=== PATIENT | female | born 1960 | race Hispanic/Latino ===

== ENCOUNTER 2023-04-11 02:01 | Emergency (ER) | payer OTHER ==
--- OUTSIDE RECORDS SUMMARY | 2023-04-11 02:05 | XMS REPORT | Continuity of Care Document ---
:1960 Author Organization [facility] t Address [address] [place] [address] [place] [id number] Care Team Providers Name Role Phone Victor Manuel Almeida MD Primary Care Physician MAGED SAWANT Attending Clinician Unavailable RITCHIE SAVAGE Attending Clinician Unavailable GEORGIE BRANCH Attending Clinician Unavailable MIMA DURAN Attending Clinician Unavailable MARIO ROBERT Attending Clinician Unavailable Lisa Olivier Attending Clinician LISA OLIVIER Attending Clinician Unavailable Claire Attending Clinician Unavailable DR BK JOHNSON Attending Clinician Unavailable JERRY BAKER Attending Clinician Unavailable MAGY FOY Attending Clinician Unavailable LORENZO CARDOZO Attending Clinician Unavailable ANTON TREJO Attending Clinician Unavailable YARON FORD Attending Clinician Unavailable JESSICA RIOS Attending Clinician Unavailable RITCHIE SAVAGE Admitting Clinician Unavailable Claire Admitting Clinician Unavailable DR BK JOHNSON Admitting Clinician Unavailable YARON FORD Admitting Clinician Unavailable JESSICA RIOS Admitting Clinician Unavailable Payers Payer Name Policy Type Policy Number Effective Date Expiration Date S ource Problems This patient has no known problems. Allergies, Adverse Reactions, Alerts Allergy Allergy Status Severity Reaction(s) Onset Inactive Treating Comm ents Source Name Type Date Date Clinician NO KNOWN Allergy Active [facility] Social History Social Habit Start Date Stop Date Quantity Comments Source Exposure to Not sure JOB Carrera [facility]-2 [facility] (event) Tobacco use and 2021-03-29 2021-03-29 Never used JOB Baker exposure 00:00:00 00:00:00 [facility] Alcohol intake 2021-03-29 2021-03-29 Current drinker JOB Acosta 00:00:00 00:00:00 of alcohol [facility] (finding) Sex Assigned At [birth year] JOB Baker 00:00:00 [facility]:00:00 [facility] Smoking Status Start Date Stop Date Source Never smoker [facility] Medications Ordered Filled Start Stop Current Ordering Indication Dosage Frequency Signature Comments Components Source Medication Medication Date Date Medication? Clinician (SIG) Name Name HYDROcodone Yes 1{tbl} Take [address] -acetaminop 9-20 tablet by Jeannine es hen (NORCO 13:40: mouth Medica l 10-325) 35 every 6 Center 10-325 mg (six) per tablet hours as needed for Pain. HYDROcodone Yes 1{tbl} Take [address] -acetaminop 9-20 tablet by Jeannine es hen (NORCO 13:40: mouth Medica l 10-325) 35 every 6 Center 10-325 mg (six) per tablet hours as needed for Pain. HYDROcodone Yes 1{tbl} Take [address] -acetaminop 9-20 tablet by Jeannine es hen (NORCO 13:40: mouth Medica l 10-325) 35 every 6 Center 10-325 mg (six) per tablet hours as needed for Pain. HYDROcodone Yes 1{tbl} Take [address] -acetaminop 9-20 tablet by Jeannine es hen (NORCO 13:40: mouth Medica l 10-325) 35 every 6 Center 10-325 mg (six) per tablet hours as needed for Pain. sodium 2020- No Post-trauma 2mL Q7D Inject 2 [facility] hyaluronate 03-29 tic mLs Karla viscosueh, 00:00: 00:00 osteoarthri intra-fabio Medical (ORTHOVISC) 00 :00 tis of left cularly Center 30 mg/2 mL knee once a Syrg week for 3 doses. Edarbyclor 2020-[address] 40-25 mg 9-16 [facility] Tab 00:00: Medical 00 Marana Edarbyclor 2020-[address] 40-25 mg 9-16 [facility] 00:00: Medical 00 Marana Edarbyclor 2020-[address] 40-25 mg 9-16 [facility] 00:00: Medical 00 Marana Edarbyclor 2020-[address] 40-25 mg 9-16 [facility] 00:00: Medical 00 Marana ALPRAZolam 0 Yes .25mg Take 0.[address] (XANAX) 9-15 mg by [facility] 0.25 MG 00:00: mouth Medical tablet 00 every 12 Center (twelve) hours as needed for anxiety. amitriptyli 0 Yes 50mg QD Take [address] ne (ELAVIL) 9-15 by mouth Luke s 25 MG 00:00: nightly. Medical tablet 00 Marana metoprolol 0 Yes 200mg QD Take [address] succinate 9-15 mg by [facility] (TOPROL-XL) 00:00: mouth Medic al 200 MG 24 00 daily. Center hr tablet naproxen 2020-0 Yes 500mg Q.5D Take [address] (NAPROSYN) 9-15 mg by [facility] 500 MG 00:00: mouth 2 Medical tablet 00 (two) Center times daily. ALPRAZolam 0 Yes .25mg Take 0.[address] (XANAX) 9-15 mg by [facility] 0.25 MG 00:00: mouth Medical tablet 00 every 12 Center (twelve) hours as needed for anxiety. amitriptyli 2020-0 Yes 50mg QD Take [address] [facility] (ELAVIL) 9-15 by mouth Luke s 25 MG 00:00: nightly. Medical tablet 00 Center metoprolol 2020-0 Yes 200mg QD Take [address] succinate 9-15 mg by [facility] (TOPROL-XL) 00:00: mouth Medic al 200 MG 24 00 daily. Center hr tablet naproxen 2020-0 Yes 500mg Q.5D Take [address] (NAPROSYN) 9-15 mg by [facility] 500 MG 00:00: mouth 2 Medical tablet 00 (two) Center times daily. ALPRAZolam 2020-0 Yes .25mg Take 0.[address] (XANAX) 9-15 mg by [facility] 0.25 MG 00:00: mouth Medical tablet 00 every 12 Center (twelve) hours as needed for anxiety. amitriptyli 2020-0 Yes 50mg QD Take [address] [facility] (ELAVIL) 9-15 by mouth Luke s 25 MG 00:00: nightly. Medical tablet 00 Marana metoprolol 2020-0 Yes 200mg QD Take [address] succinate 9-15 mg by [facility] (TOPROL-XL) 00:00: mouth Medic al 200 MG 24 00 daily. Center hr tablet naproxen 2020-0 Yes 500mg Q.5D Take [address] (NAPROSYN) 9-15 mg by [facility] 500 MG 00:00: mouth 2 Medical tablet 00 (two) Center times daily. ALPRAZolam 2020-0 Yes .25mg Take 0.[address] (XANAX) 9-15 mg by [facility] 0.25 MG 00:00: mouth Medical tablet 00 every 12 Center (twelve) hours as needed for anxiety. amitriptyli 2020-0 Yes 50mg QD Take [address] [facility] (ELAVIL) 9-15 by mouth Luke s 25 MG 00:00: nightly. Medical tablet 00 Marana metoprolol 2020-0 Yes 200mg QD Take [address] succinate 9-15 mg by [facility] (TOPROL-XL) 00:00: mouth Medic al 200 MG 24 00 daily. Center hr tablet naproxen 2020-0 Yes 500mg Q.5D Take [address] (NAPROSYN) 9-15 mg by [facility] 500 MG 00:00: mouth 2 Medical tablet 00 (two) Center times daily. montelukast 2020-0 Yes 10mg QD Take [address] (SINGULAIR) 7-01 by mouth Luke s 10 mg 00:00: daily. Medical tablet 00 Marana montelukast 2020-0 Yes 10mg QD Take [address] (SINGULAIR) 7-01 by mouth Luke s 10 mg 00:00: daily. Medical tablet 00 Marana montelukast 2021-0 Yes 10mg QD Take [address] (SINGULAIR) 7-01 by mouth Luke s 10 mg 00:00: daily. Medical tablet [address] [place] [address] montelukast Yes 10mg QD Take [address] (SINGULAIR) 7-01 by mouth Luke s 10 mg 00:00: daily. Medical tablet Center Vital Signs Vital Name Observation Time Observation Value Comments Source Systolic blood 2021-03-29 13:40:00 136 mm[Hg] [facility] Diastolic blood 2021-03-29 13:40:00 87 mm[Hg] [facility] S t [facility] Heart rate 2021-03-29 13:40:00 106 /min [facility] Body temperature 2021-03-29 13:40:00 36.72 [facility] Body height 2021-03-29 13:40:00 162.6 cm [facility] Body weight 2021-03-29 13:40:00 73.483 kg [facility] BMI 2021-03-29 13:40:00 27.81 kg/m2 [facility] Procedures This patient has no known procedures. Plan of Care Planned Activity Planned Date Details Comments Source Future Scheduled 2023-03-10 Influenza Vaccine (#1) [facility] 00:00:00 [code = Influenza Vaccine [facility] (#1)] Future Scheduled 2022-07-[address] [facility] 00:00:00 (12+) [code = DEPRESSION [facility] Center SCREENING (12+)] Future Scheduled 2022-03-[address] [facility] 00:00:00 Counseling and Screening [facility] (12+) [code = Tobacco Cessation Counseling and Screening (12+)] Future Scheduled 2022-03-[address] [facility] 00:00:00 Counseling and Screening [facility] (12+) [code = Tobacco Cessation Counseling and Screening (12+)] Future Scheduled 2022-03-[address] [facility] 00:00:00 Counseling and Screening [facility] (12+) [code = Tobacco Cessation Counseling and Screening (12+)] Future Scheduled 2022-03-10 INFLUENZA VACCINE (#1) [facility] 00:00:00 [code = INFLUENZA VACCINE Me dical Center (#1)] Future Scheduled 2022-03-10 INFLUENZA VACCINE (#1) [facility] 00:00:00 [code = INFLUENZA VACCINE Me dical Center (#1)] Future Scheduled 2021-07-[address] [facility] 00:00:00 (12+) [code = DEPRESSION Med ical Center SCREENING (12+)] Future Scheduled 2021-07-[address] [facility] 00:00:00 (12+) [code = DEPRESSION Med ical Center SCREENING (12+)] Future Scheduled 2021-03-10 INFLUENZA VACCINE (#1) [facility] 00:00:00 [code = INFLUENZA VACCINE Me dical Center (#1)] Future Scheduled 2020-07-[address] [facility] 00:00:00 (12+) [code = DEPRESSION Med ical Center SCREENING (12+)] Future Scheduled 2011 SHINGLES VACCINES ([address] [facility] 00:00:00 2) [code = SHINGLES [facility] VACCINES (1 of 2)] Future Scheduled 2011 SHINGLES VACCINES ([address] [facility] 00:00:00 2) [code = SHINGLES [facility] Center VACCINES (1 of 2)] Future Scheduled 2011 SHINGLES VACCINES ([address] [facility] 00:00[facility]00 [facility] Future Scheduled 2011 SHINGLES VACCINES ([address] [facility] 00:00:00 2) [code = SHINGLES [facility] VACCINES (1 of 2)] Future Scheduled 2006 Lipid panel (procedure) [facility] 00:00:00 [code = 02442479] Medical Ce nter Future Scheduled 2006 Lipid panel (procedure) [facility] 00:00:00 [code = 81089041] Medical Ce nter Future Scheduled 2006 Lipid panel (procedure) [facility] 00:00:00 [code = 66130041] Medical Ce nter Future Scheduled 2006 Lipid panel (procedure) [facility] 00:00:00 [code = 01489549] Medical Ce nter Future Scheduled 1982 Screening for malignant [facility] 00:00:00 neoplasm of cervix Medical C enter (procedure) [code = 892799275] Future Scheduled 1982 Screening for malignant [facility] 00:00:00 neoplasm of cervix Medical C enter (procedure) [code = 739329035] Future Scheduled 1982 Screening for malignant [facility] 00:00:00 neoplasm of cervix Medical C enter (procedure) [code = 268801771] Future Scheduled 1982 Screening for malignant [facility] 00:00:00 neoplasm of cervix Medical C enter (procedure) [code = 385120245] Future Scheduled 1980 DTAP/TDAP/TD VACCINES ([address] [facility] 00:00:00 - Tdap) [code = Medical Cent er DTAP/TDAP/TD VACCINES (1 - Tdap)] Future Scheduled 1980 DTAP/TDAP/TD VACCINES ([address] [facility] 00:00:00 - Tdap) [code = Medical Cent er DTAP/TDAP/TD VACCINES (1 - Tdap)] Future Scheduled 1980 DTAP/TDAP/TD VACCINES ([address] [facility] 00:00:00 - Tdap) [code = Medical Cent er DTAP/TDAP/TD VACCINES (1 - Tdap)] Future Scheduled 1980 DTAP/TDAP/TD VACCINES ([address] [facility] 00:00:00 - Tdap) [code = Medical Cent er DTAP/TDAP/TD VACCINES (1 - Tdap)] Future Scheduled 1979 HEPATITIS C SCRE[facility]ING [facility] 00:00:00 [code = HEPATITIS C Medical Center SCREENING] Future Scheduled 1979 HEPATITIS C [facility]ING [facility] 00:00:00 [code = HEPATITIS C Medical Center SCREENING] Future Scheduled 1979 HEPATITIS C [facility] 00:00:00 [code = HEPATITIS C Medical Center SCREENING] Future Scheduled 1979 HEPATITIS C [facility] 00:00:00 [code = HEPATITIS C Medical Center SCREENING] Future Scheduled [address] Human [address] [facility] 00:00:00 virus screening Medical Cent er (procedure) [code = 603052536] Future Scheduled 1973 COVID-19 VACCINE (1) [facility] 00:00:00 [code = COVID-19 VACCINE Med ical Center (1)] Future Scheduled 1961 COVID-19 VACCINE (#1[facility] 00:00:00 [code = COVID-19 VACCINE Med ical Center (#1)] Future Scheduled 1961 COVID-19 VACCINE (#1[facility] 00:00:00 [code = COVID-19 VACCINE Med ical Center (#1)] Future Scheduled 1961 COVID-19 VACCINE (#1[facility] 00:00:00 [code = COVID-19 VACCINE Med ical Center (#1)] Future Scheduled 1961 Screening for malignant [facility] 00:00:00 neoplasm of colon Medical Ce nter (procedure) [code = 198491312] Future Scheduled 1961 Screening for malignant [facility] 00:00:00 neoplasm of colon Medical Ce nter (procedure) [code = 089685633] Future Scheduled 1961 Screening for malignant [facility] 00:00:00 neoplasm of colon Medical Ce nter (procedure) [code = 064880286] Future Scheduled 1961 Sigmoidoscopy [code = [facility] 00:[facility]:00 Sigmoidoscopy] Medical Cente r Future Scheduled 1961 Screening for malignant [facility] 00:00:00 neoplasm of colon Medical Ce nter (procedure) [code = 514435608] Future Scheduled 1961 Screening for malignant [facility] 00:00:00 neoplasm of colon Medical Ce nter (procedure) [code = 058575340] Future Scheduled 1961 Sigmoidoscopy [code = [facility] 00:00:00 Sigmoidoscopy] Medical Cente r Future Scheduled 1961 Screening for malignant [facility] 00:00:00 neoplasm of breast Medical C enter (procedure) [code = 271442729] Future Scheduled 1961 CT Colonography (combo) [facility] 00:00:00 [code = CT Colonography [facility] (combo)] Future Scheduled 1961 Screening for malignant [facility] 00:00:00 neoplasm of colon Medical Ce nter (procedure) [code = 253913086] Future Scheduled 1961 Screening for malignant [facility] 00:00:00 neoplasm of colon Medical Ce nter (procedure) [code = 861053048] Future Scheduled 1961 Screening for malignant [facility] 00:00:00 neoplasm of breast Medical C enter (procedure) [code = 574585403] Future Scheduled 1961 Screening for malignant [facility] 00:00:00 neoplasm of colon Medical Ce nter (procedure) [code = 801915819] Future Scheduled 1961 Screening for malignant [facility] 00:00:00 neoplasm of breast Medical C enter (procedure) [code = 835013953] Future Scheduled 1961 CT Colonography (combo) [facility] 00:00:00 [code = CT Colonography [facility] (combo)] Future Scheduled 1961 Screening for malignant [facility] 00:00:00 neoplasm of colon Medical Ce nter (procedure) [code = 130334138] Future Scheduled 1961 Screening for malignant [facility] 00:00:00 neoplasm of colon Medical Ce nter (procedure) [code = 002129013] Future Scheduled 1961 Screening for malignant [facility] 00:00:00 neoplasm of colon Medical Ce nter (procedure) [code = 272305199] Future Scheduled 1961 Screening for malignant [facility] 00:00:00 neoplasm of colon Medical Ce nter (procedure) [code = 769120988] Future Scheduled 1960 Sigmoidoscopy [code = [facility] 00:00:00 Sigmoidoscopy] Medical Cente r Future Scheduled 1961 Screening for malignant [facility] 00:00:00 neoplasm of breast Medical C enter (procedure) [code = 412235934] Future Scheduled 1961 CT Colonography (combo) [facility] 00:00:00 [code = CT Colonography [facility] (combo)] Future Scheduled 1961 Screening for malignant [facility] 00:00:00 neoplasm of colon Medical Ce nter (procedure) [code = 903451663] Encounters Start End Encounter Admission Attending Care Care Encounter Source Date/Time Date/Time Type Type Clinicians Facility Department ID 2022-04-26 Inpatient MAGED MARIA [facility] [id number] [place] 05:42:19 0541 [facility] 2022-06-28 2022-06-29 Inpatient JANETTE [facility] [id number] [facility] 13:49:00 17:00:00 RITCHIE 2022-06-28 2022-06-28 Emergency ER JOSE CARLOS, [facility] [id number] [place] 09:41:00 13:11:00 GEORGIE -[id number] [facility] 2022-04-25 2022-04-25 Emergency ER ROGER, [facility] [id number] [place] 14:49:00 17:35:00 MIMA -[id number] [facility] 2021-04-07 2021-04-07 Outpatient CJ ROBERT [facility] [id number] [place] 10:26:00 10:26:00 [id number] 2021-03-29 2021-03-29 Office Soy, [facility] [id number] 13:19:33 14:38:54 Visit [facility] 2021-03-29 2021-03-29 Travel [facility] [id number] [facility] 00:[facility]00 00:00:00 [facility] 2021-03-24 2021-03-24 Outpatient SOY, [facility] [id number] 00:00:00 00:00:00 [facility] 2020-09-23 2020-09-23 Outpatient Claire ALEX G [id number] [place] 11:47:00 11:47:00 [id number] 2019-06-14 2019-06-14 Outpatient Alden JOHNSON [facility] [id number] 08:34:00 12:30:00 BKDEANNA Castro [facility] 2019-06-04 2019-06-04 Outpatient Alden JOHNSON [facility] [id number] 05:10:00 05:55:00 BK Castro [facility] 2019-03-31 2019-03-31 Emergency ER SAMUEL, [facility] [id number] [place] 00:16:00 01:35:00 JERRY -[id number] [facility] 2018-03-22 2018-03-22 Emergency ER DANII, [facility] [id number] [place] 22:35:00 23:34:00 MAGY -[id number] [facility] 2016-11-06 2016-11-06 Emergency ER , [facility] [id number] [place] 12:28:00 15:05:00 WASIM -[id number] [facility] 2009-03-26 2009-03-26 Outpatient CJ NEIL [facility] [id number] [place] 10:42:00 10:42:00 ANTON -[id number] [facility] 2008-02-25 2008-02-26 Inpatient YARON MAE [facility] MED [id number] [place] 18:00:00 09:10:00 [id number] [facility] 2007-12-28 2007-12-29 Inpatient ER JESSICA RIOS [facility] MED [id number] [place] 13:20:00 14:34:00 -[id number] [facility] Results This patient has no known results.
[2023-04-11] MEDS ORDERED: lisinopriL 20 MG TAB ONE (02:23)
[2023-04-11] MEDS ORDERED: ACETAMINOPHEN 500 MG TAB ONE (02:24)
--- NOTE | 2023-04-11 02:44 | ER ---
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 lg3 Coronavirus screen: Client denies travel out of the [place] in the last 14 days. At this time, the client does not indicate any symptoms associated with coronavirus-19. Ebola Screen: No symptoms or risks identified at this time. Initial Sepsis Screen: Does the patient meet any 2 criteria? No. Patient's initial sepsis screen is negative. Does the patient have a suspected source of infection? No. Patient's initial sepsis screen is negative. Risk Assessment: Do you want to hurt yourself or someone else? Patient reports no desire to harm self or others. Onset of symptoms was April 11, 2023. 02:05 Method Of Arrival: Law Enforcement: [place] [employer] lg3 02:05 Acuity: JACINTO 3 lg3 Triage Assessment: 02:06 General: Appears in no apparent distress. comfortable, Behavior is calm, cooperative. lg3 Pain: Complains of pain in head. EENT: No deficits noted. No signs and/or symptoms were reported regarding the EENT system. Neuro: No deficits noted. Ayala Agitation-Sedation Scale (RASS): 0 - Alert and Calm Level of Consciousness is awake, alert, obeys commands, Oriented to person, place, time, situation, Reports dizziness, headache. Cardiovascular: No deficits noted. Denies chest pain, shortness of breath, Capillary refill < 3 seconds Clubbing of nail beds is absent JVD is absent Patient's skin is warm and dry. Respiratory: No deficits noted. Airway is patent Respiratory effort is even, unlabored, Respiratory pattern is regular, symmetrical. GI: No deficits noted. No signs and/or symptoms were reported involving the gastrointestinal system. : No deficits noted. No signs and/or symptoms were reported regarding the genitourinary system. Derm: No deficits noted. No signs and/or symptoms reported regarding the dermatologic system. Skin is intact, is healthy with good turgor, Skin is dry, Skin is normal, Skin temperature is warm. Musculoskeletal: No deficits noted. No signs and/or symptoms reported regarding the musculoskeletal system. Circulation, motion, and sensation intact. Range of motion: intact in all extremities. Historical: - Allergies: 02:06 No Known Allergies; lg3 - Home Meds: 02:06 Unable to obtain [Active]; lg3 - PMHx: 02:06 Hypertensive disorder; Anxiety; Depressive disorder; lg3 - PSHx: 02:06 None; lg3 - Immunization history:: Adult Immunizations up to date, Client reports receiving the 2nd dose of the Covid vaccine, Flu vaccine is not up to date. - Social history:: Smoking status: Patient reports the use of cigarette tobacco products, denies chronic smoking, but will smoke occasionally, Patient/guardian denies using alcohol, street drugs. Screenin:09 [facility] ED Fall Risk Assessment (Adult) History of falling in the last 3 months, lg3 including since admission No falls in past 3 months (0 pts). Abuse screen: Denies threats or abuse. Denies injuries from another. Nutritional screening: No deficits noted. Tuberculosis screening: No symptoms or risk factors identified. Assessment: 02:08 General: see triage assessment. lg3 02:49 Reassessment: Patient appears in no apparent distress at this time. No changes from lg3 previously documented assessment. Patient and/or family updated on plan of care and expected duration. Pain level reassessed. Patient is alert, oriented x 3, equal unlabored respirations, skin warm/dry/pink. Patient states feeling better. Patient states symptoms have improved. Vital Signs: 02:05 BP 163 / 98; Pulse 88; Resp 17 S; Temp 98.2(O); Pulse Ox 98% on R/A; Weight 68.04 kg lg3 (R); Height 5 ft. 4 in. (R); 02:49 BP 135 / 92; Pulse 89; Resp 17 S; Pulse Ox 100% on R/A; lg3 02:05 Body Mass Index 25.75 (68.04 kg, 162.56 cm) lg3 ED Course: 02:03 Patient arrived in ED. rv1 02:04 Halina Baum, ANA is Primary Nurse. lg3 02:06 Cassandra Ashford FNP-C is PHCP. kb 02:06 Therese Suarez MD is Attending Physician. kb 02:06 Triage completed. lg3 02:06 Arm band placed on right wrist. lg3 02:09 Patient has correct armband on for positive identification. Bed in low position. Call lg3 light in reach. Side rails up X 1. Client placed on continuous cardiac and pulse oximetry monitoring. NIBP monitoring applied. night monitor on. Door closed. Noise minimized. Warm blanket given. 02:09 Patient maintains SpO2 saturation greater than 95% on room air. lg3 02:50 No provider procedures requiring assistance completed. Patient did not have IV access lg3 during this emergency room visit. Administered Medications: 02:08 CANCELLED (Physician Discretion): [id number] mg PO once kb 02:14 Drug: Acetaminophen PO 1000 mg PO once Route: PO; lg3 02:50 Follow up: Response: No adverse reaction; Marked relief of symptoms lg3 02:14 Drug: Lisinopril PO 20 mg PO once Route: PO; lg3 02:50 Follow up: Response: No adverse reaction; Marked relief of symptoms lg3 Medication: 02:51 VIS not applicable for this client. lg3 Outcome: 02:44 Discharge ordered by . kb 02:50 Discharged to Law Enforcement lg3 02:50 Condition: stable 02:50 Discharge instructions given to patient, Instructed on discharge instructions, follow up and referral plans. Demonstrated understanding of instructions, follow-up care, 02:51 Patient left the ED. lg3 Signatures: Cassandra Ashford, TOY ASSEMBLER WOODJaida GALINDO-Halina Chan RN RN lg3 Shiela Cevallos rv1
--- NOTE | 2023-04-11 02:44 | EDPHYS ---
Physician Documentation [facility] Name: Darling Ruggiero Age: 63 yrs Sex: Female : 1960 Arrival Date: 04/11/2023 Time: 02:01 Bed 2 Private MD: ED Physician Therese Suarez HPI: 04/11 02:12 This 63 yrs old Female presents to ER via [employer] with complaints of kb hypertension, headache. 02:12 The patient has elevated blood pressure and discovered this EMS. Onset: The kb symptoms/episode began/occurred 2 hour(s) ago. Associated signs and symptoms: Pertinent positives: headache, Pertinent negatives: chest pain, dizziness, dyspnea, lightheadedness, nausea, visual changes, vomiting, weakness. The patient has not experienced similar symptoms in the past. The patient has not recently seen a physician. Pt reports high blood pressure and headache that started 2 hours ship [employer]. States she was supposed to take her blood pressure medication at 8pm, but has been in long-term so she wasn't able to take it. Denies any other symptoms. . Historical: - Allergies: 02:06 No Known Allergies; lg3 - Home Meds: 02:06 Unable to obtain [Active]; lg3 - PMHx: 02:06 Hypertensive disorder; Anxiety; Depressive disorder; lg3 - PSHx: 02:06 None; lg3 - Immunization history:: Adult Immunizations up to date, Client reports receiving the 2nd dose of the Covid vaccine, Flu vaccine is not up to date. - Social history:: Smoking status: Patient reports the use of cigarette tobacco products, denies chronic smoking, but will smoke occasionally, Patient/guardian denies using alcohol, street drugs. ROS: 02:12 Constitutional: Negative for fever, chills, and weight loss, kb 02:12 Neuro: Positive for headache, 02:12 All other systems are negative, Exam: 02:12 Constitutional: This is a well developed, well nourished patient who is awake, alert, kb and in no acute distress. Head/Face: Normocephalic, atraumatic. ENT: Moist Mucous membranes Cardiovascular: Regular rate Respiratory: Respirations even and unlabored. No increased work of breathing. Talking in full sentences Skin: Warm, dry with normal turgor. Normal color. MS/ Extremity: Pulses equal, no cyanosis. Neurovascular intact. Full, normal range of motion. Neuro: Awake and alert, GCS 15, oriented to person, place, time, and situation. Moves all extremities. Normal gait. Vital Signs: 02:05 BP 163 / 98; Pulse 88; Resp 17 S; Temp 98.2(O); Pulse Ox 98% on R/A; Weight 68.04 kg lg3 (R); Height 5 ft. 4 in. (R); 02:49 BP 135 / 92; Pulse 89; Resp 17 S; Pulse Ox 100% on R/A; lg3 02:05 Body Mass Index 25.75 (68.04 kg, 162.56 cm) lg3 MDM: 02:06 Patient medically screened. kb 02:12 Differential diagnosis: hypertensive crisis, Malignant HTN, CVA. Data reviewed: vital kb signs, nurses notes. Historians other than the Patient: EMS: [facility]. Counseling: I had a detailed discussion with the patient and/or guardian regarding the historical points, exam findings, and any diagnostic results supporting the discharge/admit diagnosis, the need for outpatient follow up, a family practitioner, to return to the emergency department if symptoms worsen or persist or if there are any questions or concerns that arise at home. 02:42 Test considered but Not performed: Labs: cbc, bmp, trop considered. Pt is well kb appearing and in no distress. Pt's only complaint is headache. ED course: Pt feeling better, will discharge back to police custody. Administered Medications: 02:08 CANCELLED (Physician Discretion): [id number] mg PO once kb 02:14 Drug: Acetaminophen PO 1000 mg PO once Route: PO; lg3 02:50 Follow up: Response: No adverse reaction; Marked relief of symptoms lg3 02:14 Drug: Lisinopril PO 20 mg PO once Route: PO; lg3 02:50 Follow up: Response: No adverse reaction; Marked relief of symptoms lg3 Disposition Summary: 04/11/23 02:44 Discharge Ordered Notes: Condition: Stable kb Location: [employer](04/11/23 02:44) kb Diagnosis - Essential (primary) hypertension kb Followup: kb - With: Emergency Department - When: As needed - Reason: Worsening of condition Followup: kb - With: Private Physician - When: 2 - 3 days - Reason: Recheck today's complaints, Continuance of care, Re-evaluation by your physician Discharge Instructions: - Discharge Summary Sheet kb - Hypertension, Adult, [id number] kb Forms: - Medication Reconciliation Form kb - Thank You Letter kb - Antibiotic Education kb - Prescription Opioid Use kb - Patient Portal Instructions kb - Leadership Thank You Letter kb Signatures: Cassandra Ashford FNP-C FNP-Ckb Gibson, Lacie RN RN lg3 Corrections: (The following items were deleted from the chart) 02:08 02:08 Lisinopril PO 40 mg PO once ordered. kb kb 02:44 02:44 Home kb kb
[2023-04-11 02:56] VITALS: TEMP 98.2
[2023-04-11 02:57] VITALS: BP 135/92; O2SAT 100
== END 2023-04-11 02:51 ==
LOC: ER 02:01
DX: I10 Essential (primary) hypertension (principal); F17.210 Nicotine dependence, cigarettes, uncomplicated
CPT/HCPCS: 99284